=== PATIENT | male | born 1935 | race African-American/Black ===

== ENCOUNTER 2020-06-23 14:37 | Emergency (ER) | payer OTHER ==
[~2020-06-23] VITALS: Ht 180.3 cm; Wt 76.4 kg
[2020-06-23 14:45] VITALS: BP 142/80
[2020-06-23] MEDS ORDERED: IV NORMAL SALINE 500ML BAG 500 ML IV ONE (15:00)
[2020-06-23] MEDS ORDERED: ONDANSETRON PF 4 MG/2 ML VIAL. IVP ONE (15:00)
--- NOTE | 2020-06-23 15:16 | PHYS DOC ---
Past Medical History Past Medical History: Hypertension, Other Additional Past Medical Histor: R kidney photographers' model, hernia, hemorrhoids (DAY PERALTA DO) Past Surgical History: Other Additional Past Surgical Histo: hernia and hemorrhoids (DAY PERALTA DO) Smoking Status: Never Smoker Alcohol Use: None (DAY PERALTA DO) General Adult EDM: Chief Complaint: NAUSEA/VOMITING/DIARRHEA HPI: HPI: Patient is a 85 year old male who was brought here by EMS due to nausea and vomiting with diarrhea. Patient said he went out , ate some Syriac food yesterday evening, this morning he has diarrhea at home. Patient ate some crackers and drink some water this morning and took his family to [facility]. Patient then went [place] [facility] to [place] his sister. While he was stand ing there, patient started feeling queasy in his stomach, he went to his car and sat down. Patient started feeling very nauseous and vomited once. He did have another episode of diarrhea earlier. Patient has some cramping pain in his stomach area. Patient denies any chest pain, no trouble breathing, no cough. Patient did not eat lunch, he was planning to go to have lunch after he visits his sister at the [facility]. Patient felt much better now after he vomited. (DAY PERALTA DO) Review of Systems: Review of Systems: Constitutional: Denies fever or chills. [] Eyes: Denies change in visual acuity. [] HENT: Denies nasal congestion or sore throat. [] Respiratory: Denies cough or shortness of breath. [] Cardiovascular: Denies chest pain or edema. [] GI: Positive for abdominal pain, nausea, vomiting, diarrhea. [] : Denies dysuria. [] Musculoskeletal: Denies back pain or joint pain. [] Integument: Denies rash. [] Neurologic: Denies headache, focal weakness or sensory changes. [] Endocrine: Denies polyuria or polydipsia. [] Lymphatic: Denies swollen glands. [] Psychiatric: Denies depression or anxiety. [] (DAY PERALTA DO) Heart Score: C/O Chest Pain: N/A Risk Factors: Risk Factors: DM, Current or recent (<one month) smoker, HTN, HLP, family history of CAD, obesity. Risk Scores: Score 0 - 3: 2.5% MACE over next 6 weeks - Discharge Home Score 4 - 6: 20.3% MACE over next 6 weeks - Admit for Clinical Observation Score 7 - 10: 72.7% MACE over next 6 weeks - Early Invasive Strategies (DAY PERALTA DO) Current Medications: Current Medications Medications (Trade) Dose Ordered Sig/Josiane Start Time Stop Time Status Last Admin Dose Admin Ondansetron HCl (Zofran) 4 mg 1X ONCE 06/23/20 15:00 06/23/20 15:01 UNV Sodium Chloride 500 ml @ 500 mls/hr 1X ONCE 06/23/20 15:00 06/23/20 15:59 UNV (DAY PERALTA DO) Physical Exam: PE: Constitutional: Well developed, well nourished, no acute distress, non-toxic appearance. [] HENT: Normocephalic, atraumatic, bilateral external ears normal, oropharynx moist, no oral exudates, nose normal. [] Eyes: PERRLA, EOMI, conjunctiva normal, no discharge. [] Neck: Normal range of motion, no tenderness, supple, no stridor. [] Cardiovascular:Heart rate regular rhythm, no murmur [] Lungs & Thorax: Bilateral breath sounds clear to auscultation [] Abdomen: Bowel sounds normal, soft, no tenderness, no masses, no pulsatile masses. [] Skin: Warm, dry, no erythema, no rash. [] Back: No tenderness, no CVA tenderness. [] Extremities: No tenderness, no cyanosis, no clubbing, ROM intact, no edema. [] Neurologic: Alert and oriented X 3, normal motor function, normal sensory function, no focal deficits noted. [] Psychologic: Affect normal, judgement normal, mood normal. [] (DAY PERALTA DO) PE: Constitutional: Well developed, well nourished, no acute distress, non-toxic appearance HENT: Normocephalic, atraumatic Eyes: Conjunctiva normal, no discharge Neck: Normal range of motion, supple Lungs & Thorax: No respiratory distress, equal chest rise and fall Abdomen: Soft, no tenderness, no guarding/rebound tenderness/distention Skin: Warm, dry, no erythema, no rash Extremities: No tenderness, ROM intact, no edema Neurologic: Alert and oriented X 3, no focal deficits noted Psychologic: Affect normal, judgment normal (JON,RONEL R DO) Current Patient Data: Labs: Laboratory Tests Test 06/23/20 15:10 White Blood Count 10.1 x10^3/uL Red Blood Count 5.14 x10^6/uL Hemoglobin 16.2 g/dL Hematocrit 48.0 % Mean Corpuscular Volume 93 fL Mean Corpuscular Hemoglobin 32 pg Mean Corpuscular Hemoglobin Concent 34 g/dL Red Cell Distribution Width 14.1 % Platelet Count 230 x10^3/uL Neutrophils (%) (Auto) 92 % Lymphocytes (%) (Auto) 3 % Monocytes (%) (Auto) 5 % Eosinophils (%) (Auto) 0 % Basophils (%) (Auto) 0 % Neutrophils # (Auto) 9.3 x10^3/uL Lymphocytes # (Auto) 0.3 x10^3/uL Monocytes # (Auto) 0.5 x10^3/uL Eosinophils # (Auto) 0.0 x10^3/uL Basophils # (Auto) 0.0 x10^3/uL Segmented Neutrophils % 87 % Band Neutrophils % 3 % Lymphocytes % 6 % Monocytes % 4 % Platelet Estimate Adequate Sodium Level 143 mmol/L Potassium Level 4.4 mmol/L Chloride Level 107 mmol/L Carbon Dioxide Level 28 mmol/L Anion Gap 8 Blood Urea Nitrogen 19 mg/dL Creatinine 1.1 mg/dL Estimated GFR (Cockcroft-Gault) 63.8 BUN/Creatinine Ratio 17 Glucose Level 92 mg/dL Calcium Level 8.4 mg/dL Magnesium Level 2.3 mg/dL Total Bilirubin 0.6 mg/dL Aspartate Amino Transf (AST/SGOT) 19 U/L Alanine Aminotransferase (ALT/SGPT) 20 U/L Alkaline Phosphatase 92 U/L Troponin I Quantitative < 0.017 ng/mL Total Protein 8.0 g/dL Albumin 4.1 g/dL Albumin/Globulin Ratio 1.1 Lipase 53 U/L Current Medications Medications (Trade) Dose Ordered Sig/Josiane Route PRN Reason Start Time Stop Time Status Last Admin Dose Admin Ondansetron HCl (Zofran) 4 mg 1X ONCE IVP 06/23/20 15:00 06/23/20 15:39 DC 06/23/20 15:37 Sodium Chloride 500 ml @ 500 mls/hr 1X ONCE IV 06/23/20 15:00 5/9/21 15:59 DC 06/23/20 15:39 Iohexol (Omnipaque 300 Mg/ml) 75 ml 1X ONCE IV 06/23/20 17:30 06/23/20 17:31 Info (CONTRAST GIVEN -- Rx MONITORING) 1 each PRN DAILY PRN MC SEE COMMENTS 06/23/20 17:15 06/25/20 17:14 Vital Signs: Vital Signs Date Time Temp Pulse Resp B/P (MAP) Pulse Ox O2 Delivery O2 Flow Rate FiO2 06/23/20 14:45 98.5 83 20 142/80 (100) 96 Room Air 98.5 (DAY PERALTA DO) EKG: EKG: [] (DAY PERALTA DO) Radiology/Procedures: Radiology/Procedures: [][facility] [address] [place] [address] IMAGING REPORT Signed PATIENT: ALVIN ARGUETA ACCOUNT: [id number] : 1935 LOCATION: ER AGE: 85 SEX: M EXAM STATUS: REG ER ORD. PHYSICIAN: DAY PERALTA DO REASON: nausea, vomiting PROCEDURE: ACUTE ABDOMEN SERIES EXAM: Abdomen series. HISTORY: Nausea and vomiting. COMPARISON: None. FINDINGS: A frontal view of the chest and frontal upright and supine views of the abdomen are obtained. There is no infiltrate, pleural effusion or pneumothorax. The heart is normal in size. There are prominent air-filled loops of bowel within the midabdomen. There is no transition point to suggest obstruction. There is no free air. There are degenerative changes throughout the spine. IMPRESSION: 1. No acute pulmonary finding. 2. Nonspecific air-filled loops of bowel throughout the abdomen. There is no convincing obstruction. Electronically signed by: Zehra Murphy MD (06/23/2020 4:51 PM) [facility] DICTATED and SIGNED BY: ZEHRA MURPHY MD DATE: 06/23/20 [id number] (DAY PERALTA DO) Radiology/Procedures: PROCEDURE: CT ABD PELV W/ IV CONTRST ONLY EXAM: Abdomen and pelvis CT with intravenous contrast. HISTORY: Nausea. Vomiting and pain. TECHNIQUE: Computed tomographic images of the abdomen and pelvis were obtained following the administration of intravenous contrast. Multiplanar reformatting was performed. *One or more of the following individualized dose reduction techniques were utilized for this examination: 1. Automated exposure control. 2. Adjustment of the mA and/or kV according to patient size. 3. Use of iterative reconstruction technique. COMPARISON: None. FINDINGS: Evaluation of the lower thorax demonstrates bilateral posterior dependent and basilar atelectasis. The possibility of superimposed lower lobe interstitial infiltrate is not excluded. There is no pleural effusion. There is a 1.5 cm hyperdense or enhancing lesion within the lateral right hepatic lobe, the appearance of which favors benign shunt phenomenon. There is no suspicious hepatic lesion. The gallbladder, pancreas, spleen, stomach and adrenal glands are unremarkable. There are multiple simple appearing renal cysts, the largest of which is seen on the right measuring 10.0 cm. There is left renal cortical scarring. There is no hydronephrosis. The cecum is positioned within the right midabdomen. The appendix is not seen. There are prominent fluid-filled loops of small bowel with slight wall thickening throughout the mid and lower abdomen, suggesting enteritis. There is no bowel structure in. There is no free air. The urinary bladder is unremarkable. The aorta is normal in caliber. There is no lymphadenopathy. There are degenerative changes throughout the spine. There is lumbar hyperlordosis and multilevel listhesis. There is no acute or suspicious osseous finding. IMPRESSION: 1. Prominent fluid-filled loops of small bowel within the mid and lower lobe suggesting enteritis.. There is no transition point to suggest obstruction. 2. Nonvisualization of the appendix. The cecum is positioned within the right midabdomen, a normal variant. There are no secondary findings to suggest appendicitis. 3. Multiple simple appearing renal cysts, the largest of which is 10.0 cm on the right. There is renal cortical scarring. 4. Bilateral lower lobe atelectasis. The possibility of superimposed interstitial infiltrate is not excluded. Electronically signed by: Zehra Murphy MD (06/23/2020 6:04 PM) [facility] (RONEL JON DO) Course & Med Decision Making: Course & Med Decision Making Pertinent Labs and Imaging studies reviewed. (See chart for details) Patient is a 85-year-old male who presented to ER due to nausea vomiting and diarrhea. Patient is suspected to have food poisoning. Patient was givne IV fluid and nausea medication in the ED, he feels much better. Care was transferred over to Dr. Jon at shift change (DAY PERALTA DO) Course & Med Decision Making 1800-signout received from Dr. Peralta for patient with nausea/vomiting/diarrhea. Labs reviewed. X-ray reviewed. Patient pending CT results. CT results with signs of enteritis. Patient previously treated symptomatically. Patient seen and evaluated by myself. Patient reports interval improvement. Abdomen nonperitoneal. Patient stable for discharge with outpatient follow-up with PCP. Discussed findings and plan with patient, who acknowledges understanding and agreement. (RONEL JON DO) Dragon Disclaimer: Dragon Disclaimer: This electronic medical record was generated, in whole or in part, using a voice recognition dictation system. (DAY PERALTA DO) Departure Departure Impression: Primary Impression: Gastroenteritis Disposition: HOME / SELF CARE / HOMELESS Condition: IMPROVED Patient Instructions: Clear Liquid Diet, [id number], Diet for Diarrhea, Adult, Viral Gastroenteritis, Tniu-wp-[place] Script[facility] Hyoscyamine Sulfate (LEVSIN-SL) 0.125 Mg Tab.subl 0.125 MG SL Q4-6HRS PRN for PAIN, #14 TAB Prov: RONEL JON DO 06/23/20 Ondansetron (ONDANSETRON ODT) 4 Mg Tab.rapdis 1 TAB PO PRN Q6-8HRS PRN for NAUSEA, #16 TAB Prov: RONEL JON DO 06/23/20 Famotidine (PEPCID) 20 Mg Tablet 20 MG PO BID for 5 Days, #10 TAB Prov: RONEL JON DO 06/23/20 DAY PERALTA DO June 23, 2020 15:16 RONEL JON DO June 23, 2020 18:25
[2020-06-23 15:32] LABS: BASO % 0 % (0-3); EOS % 0 % (0-3); HEMOGLOBIN 16.2 g/dL (13.0-17.5); LYMPH # 0.3 x10^3/uL (1.0-4.8); LYMPH % 3 % (24-48); MEAN CORPUSCULAR HEMOGLOBIN 32 pg (25-35); MEAN CORPUSCULAR HGB CONC 34 g/dL (31-37); MEAN CORPUSCULAR VOLUME 93 fL (79-100); MONO # 0.5 x10^3/uL (0.0-1.1); MONO % 5 % (0-9); NEUT # 9.3 x10^3/uL (1.8-7.7); NEUT % 92 % (31-73); PLATELET COUNT 230 x10^3/uL (140-400); RED BLOOD COUNT 5.14 x10^6/uL (4.30-5.70); RED CELL DISTRIBUTION WIDTH 14.1 % (11.5-14.5); WHITE BLOOD COUNT 10.1 x10^3/uL (4.0-11.0)
[2020-06-23 15:41] LABS: CALCIUM 8.4 mg/dL (8.5-10.1); CREATININE 1.1 mg/dL (0.7-1.3); GFR 63.8; POTASSIUM 4.4 mmol/L (3.5-5.1)
[2020-06-23 15:49] LABS: ALBUMIN 4.1 g/dL (3.4-5.0); ALBUMIN/GLOBULIN RATIO 1.1 (1.0-1.7); MAGNESIUM 2.3 mg/dL (1.8-2.4); TOTAL BILIRUBIN 0.6 mg/dL (0.2-1.0)
[2020-06-23 15:59] LABS: % BANDS 3 % (0-9); % LYMPHS 6 % (24-48); % MONOS 4 % (0-10); % SEGS 87 % (35-66)
[2020-06-23 16:00] LABS: PLT ESTIMATE ADEQUATE (ADEQUATE)
--- NOTE | 2020-06-23 16:53 | RAD ---
EXAM: Abdomen series. HISTORY: Nausea and vomiting. COMPARISON: None. FINDINGS: A frontal view of the chest and frontal upright and supine views of the abdomen are obtaine d. There is no infiltrate, pleural effusion or pneumothorax. The heart is normal in size. There are p rominent air-filled loops of bowel within the midabdomen. There is no transition point to suggest obs truction. There is no free air. There are degenerative changes throughout the spine. IMPRESSION: 1. No acute pulmonary finding. 2. Nonspecific air-filled loops of bowel throughout the abdomen. There is no convincing obstruction. Electronically signed by: Zehra Duffy MD (06/23/2020 4:51 PM) [facility]
[2020-06-23] MEDS ORDERED: CONTRAST GIVEN. MC PRN (17:15)
[2020-06-23] MEDS ORDERED: IOHEXOL 300 MG/ML 100ML VIAL. IV ONE (17:30)
--- NOTE | 2020-06-23 18:06 | RAD ---
EXAM: Abdomen and pelvis CT with intravenous contrast. HISTORY: Nausea. Vomiting and pain. TECHNIQUE: Computed tomographic images of the abdomen and pelvis were obtained following the administ ration of intravenous contrast. Multiplanar reformatting was performed. *One or more of the following individualized dose reduction techniques were utilized for this examina tion: 1. Automated exposure control. 2. Adjustment of the mA and/or kV according to patient size. 3. Use of iterative reconstruction technique. COMPARISON: None. FINDINGS: Evaluation of the lower thorax demonstrates bilateral posterior dependent and basilar atele ctasis. The possibility of superimposed lower lobe interstitial infiltrate is not excluded. There is no pleural effusion. There is a 1.5 cm hyperdense or enhancing lesion within the lateral right hepati c lobe, the appearance of which favors benign shunt phenomenon. There is no suspicious hepatic lesion . The gallbladder, pancreas, spleen, stomach and adrenal glands are unremarkable. There are multiple simple appearing renal cysts, the largest of which is seen on the right measuring 10.0 cm. There is l eft renal cortical scarring. There is no hydronephrosis. The cecum is positioned within the right midabdomen. The appendix is not seen. There are prominent fl uid-filled loops of small bowel with slight wall thickening throughout the mid and lower abdomen, sug gesting enteritis. There is no bowel structure in. There is no free air. The urinary bladder is unrem arkable. The aorta is normal in caliber. There is no lymphadenopathy. There are degenerative changes throughout the spine. There is lumbar hyperlordosis and multilevel listhesis. There is no acute or ocampo spicious osseous finding. IMPRESSION: 1. Prominent fluid-filled loops of small bowel within the mid and lower lobe suggesting enteritis.. T here is no transition point to suggest obstruction. 2. Nonvisualization of the appendix. The cecum is positioned within the right midabdomen, a normal va riant. There are no secondary findings to suggest appendicitis. 3. Multiple simple appearing renal cysts, the largest of which is 10.0 cm on the right. There is tawana l cortical scarring. 4. Bilateral lower lobe atelectasis. The possibility of superimposed interstitial infiltrate is not e xcluded. Electronically signed by: Zehra Duffy MD (06/23/2020 6:04 PM) [facility]
[2020-06-23] MEDS ORDERED: ONDA4TAB12 PO (18:25)
[2020-06-23] MEDS ORDERED: FAMO-63 PO (18:25)
[2020-06-23] MEDS ORDERED: HYOS0.1265 SL (18:25)
--- NOTE | 2020-06-23 19:05 | EKG ---
[facility] [address] [place] [address] Test Date: 2020-06-23 Test Time: 15:20:42 Pat Name: ALVIN ARGUETA Department: Room: Gender: M [employer]: : 1935 Requested By: DAY PERALTA Order Number: [id number] Reading MD: Measurements Intervals [place] Rate: 80 P: 55 IA: 204 QRS: 10 QRSD: 82 T: 42 QT: 350 QTc: 407 Interpretive Statements SINUS RHYTHM LEFT ATRIAL ABNORMALITY ABNORMAL ECG RI6.01 No previous ECG available for comparison
== END 2020-06-23 18:25 | disposition home or self-care (01) ==
LOC: ER 14:37
DX: K52.9 Noninfective gastroenteritis and colitis, unspecified (principal); I10 Essential (primary) hypertension
CPT/HCPCS: 36415; 74022; 74177; 80053; 83690; 83735; 84484; 85007; 85025; 93005; 96361; 96374; 99285; J2405; J7040; Q9967